=== PATIENT | male | born 1950 | race African-American/Black ===

== ENCOUNTER 2017-07-29 03:21 | Emergency (ER) | payer MEDICARE ==
[2017-07-29] MEDS ORDERED: Aspirin 325 MG TAB ONE (03:55)
[2017-07-29 03:57] LABS: INR-International Normal Ratio 1.1; PTT 27.6 SEC (22.9-36.1); Prothrombin Time 14.1 SEC (12.0-14.7)
[2017-07-29 04:10] LABS: ALT (SGPT) 10 U/L (8-55); AST (SGOT) 11 U/L (5-34); Albumin 3.9 g/dL (3.4-4.8); Alkaline Phosphatase 86 U/L (40-150); Anion Gap 13 mmol/L (10-20); BUN (Urea Nitrogen) 15 mg/dL (8.4-25.7); Bilirubin, Total 0.5 mg/dL (0.2-1.2); CK (CPK) 145 U/L (30-200); Calc. Creatinine Clearance 0 mL/min (70-130); Calcium 8.7 mg/dL (7.8-10.44); Carbon Dioxide 28 mmol/L (23-31); Chloride 105 mmol/L (98-107); Estimated GFR-MDRD 74; Globulin 2.9 g/dL (2.4-3.5); Glucose 103 mg/dL (80-115); Magnesium 2.3 mg/dL (1.6-2.6); Potassium 3.9 mmol/L (3.5-5.1); Protein, Total 6.8 g/dL (5.8-8.1); Sodium 142 mmol/L (136-145)
[2017-07-29 04:11] LABS: CKMB 2.5 ng/mL (0-6.6); Troponin I 0.036 ng/mL (< 0.028)
[2017-07-29 04:13] LABS: #Basophils 0.1 thou/uL (0.0-0.2); #Eosinphils 0.2 thou/uL (0.0-0.7); #Monocytes 0.6 thou/uL (0.11-0.59); #Neutrophils 4.2 thou/uL (1.40-6.50); %Basophils 1.5 % (0.0-1.0); %Eosinophils 2.7 % (0.0-10.0); %Lymphocytes 27.2 % (21.0-51.0); %Monocytes 8.3 % (0.0-10.0); %Neutrophils 60.3 % (42.0-75.0); Hemoglobin 15.3 g/dL (14.0-18.0); MDiff Complete? YES; Manual Diff?? YES; Mean Corpuscular HGB CONC 32.9 g/dL (32.0-36.0); Mean Corpuscular Hemoglobin 32.1 pg (27.0-31.0); Mean Corpuscular Volume 97.6 fL (80.0-94.0); Mean Platelet Volume 10.6 fL (7.4-10.4); Platelet Count 166 thou/uL (130-400); RBC Distribution Width 12.4 % (11.5-14.5); Red Blood Cell (RBC) Count 4.77 mill/uL (4.70-6.10); White Blood Cell (WBC) Count 6.9 thou/uL (4.8-10.8)
[2017-07-29 04:14] LABS: Eosinophils 1 % (0-10); Giant Platelets SLIGHT; Lymphocytes 35 % (21-51); Monocytes 4 % (0-10); Neutrophil 57 % (42-75); PLT Morphology Comment Appears Adequate; Reactive Lymphocytes 3 % (0-10)
[2017-07-29 04:15] LABS: RBC Morphology Normal
[2017-07-29 04:30] LABS: Bilirubin Negative (Negative); Blood, Urine Negative (Negative); Clarity Clear (Clear); Glucose, Urine (Dipstick) Negative (Negative); Leukocyte Negative (Negative); Nitrite Negative (Negative); Protein, Urine (Dipstick) Negative (Neg-Trace); pH, Urine 7.5 (5.0-9.0)
[2017-07-29 04:33] LABS: Bacteria/HPF None Seen HPF (None Seen); RBC/HPF 0-3 HPF (0-3); Squamous Epithelial 0-3 HPF (0-3); WBC/HPF 0-3 HPF (0-3)
[2017-07-29 05:37] LABS: Amphetamine Detected (NotDetected); Barbiturates Screen Not Detected (NotDetected); Benzodiazepine Screen Not Detected (NotDetected); Cocaine Metabolite Screen Not Detected (NotDetected); Medtox Control Line Valid? VALID (VALID); Methadone Not Detected (NotDetected); Methamphetamine Detected (NotDetected); Opiate Screen Not Detected (NotDetected); Oxycodone Screen Not Detected (NotDetected); Phencyclidine (PCP) Not Detected (NotDetected); THC/Cannabinoid Screen Not Detected (NotDetected); Tricyclic Screen Not Detected (NotDetected)
[2017-07-29 05:42] LABS: Acetaminophen Less than 6.0 mcg/mL (10.0-30.0); Alcohol Less than 10 mg/dL (Less than 10); Salicylate Less than 8.0 mg/dL (15.0-30.0)
--- NOTE | 2017-07-29 07:52 | RAD ---
PORTABLE CHEST ONE VIEW: Date: 07-29-17 Time: 3:25 a.m. History: Chest pain. FINDINGS: The heart size is normal. The lungs are expanded without focal areas of consolidation, pneumothorax, or pleural effusions. Old healed right sided rib fracture. IMPRESSION: No radiographic evidence of acute cardiopulmonary process. POS: [facility]
[2017-07-29] MEDS ORDERED: Nitroglycerin 0.4 MG TAB (25 Tab Bottle) ONE (14:06)
== END 2017-07-29 06:10 | disposition short-term general hospital (02) ==
LOC: MADERS 03:21
DX: I20.0 Unstable angina (principal); I10 Essential (primary) hypertension; E11.8 Type 2 diabetes mellitus with unspecified complications; F17.200 Nicotine dependence, unspecified, uncomplicated
CPT/HCPCS: 71045; 80053; 80306; 80307; 81001; 82553; 83735; 83880; 84484; 85025; 85610; 85730; 87086; 93005; 94760

== ENCOUNTER 2017-07-31 22:10 | Emergency (ER) | payer MEDICARE ==
[~2017-07-31 22:10] MED LIST: Donnatal Elixir 16.2 MG/5 ML UDCUP ONE
--- NOTE | 2017-07-31 22:47 | RAD ---
CHEST ONE VIEW 07/31/17 HISTORY: Fluttering of heart. COMPARISON: Chest one view 07/29/17. Lungs are clear. No pneumothorax or effusion. Cardiac silhouette and mediastinal contours are within normal limits. IMPRESSION: No acute intrathoracic abnormality. POS: [facility]
[2017-07-31 22:54] LABS: PTT 28.1 SEC (22.9-36.1); Prothrombin Time 13.6 SEC (12.0-14.7)
[2017-07-31 23:05] LABS: ALT (SGPT) 9 U/L (8-55); AST (SGOT) 10 U/L (5-34); Albumin 3.9 g/dL (3.4-4.8); Alkaline Phosphatase 87 U/L (40-150); Anion Gap 16 mmol/L (10-20); BUN (Urea Nitrogen) 15 mg/dL (8.4-25.7); Bilirubin, Total 0.4 mg/dL (0.2-1.2); CK (CPK) 88 U/L (30-200); Calc. Creatinine Clearance 0 mL/min (70-130); Calcium 9.2 mg/dL (7.8-10.44); Carbon Dioxide 25 mmol/L (23-31); Chloride 105 mmol/L (98-107); Estimated GFR-MDRD 84; Glucose 100 mg/dL (80-115); Potassium 3.6 mmol/L (3.5-5.1); Protein, Total 6.9 g/dL (5.8-8.1); Sodium 142 mmol/L (136-145)
[2017-07-31 23:11] LABS: CKMB 1.8 ng/mL (0-6.6); Hemoglobin 15.8 g/dL (14.0-18.0); MDiff Complete? YES; Mean Corpuscular HGB CONC 32.8 g/dL (32.0-36.0); Mean Corpuscular Hemoglobin 31.5 pg (27.0-31.0); Mean Platelet Volume 12.6 fL (7.4-10.4); Platelet Count 211 thou/uL (130-400); RBC Distribution Width 12.3 % (11.5-14.5); Troponin I 0.018 ng/mL (< 0.028); White Blood Cell (WBC) Count 8.1 thou/uL (4.8-10.8)
[2017-07-31 23:12] LABS: Anisocytosis SLIGHT = 6-15 cells (100X) (0-5/hpf); Band 1 % (5-11); Delete Auto Diff?? YES; Lymphocytes 24 % (21-51); Macrocytosis SLIGHT = 6-15 cells (100X) (0-5/hpf); Monocytes 5 % (0-10); Neutrophil 70 % (42-75)
[2017-07-31 23:13] LABS: PLT Morphology Comment Appears Adequate
[2017-08-01] MEDS ORDERED: Lidocaine Viscous Sol 2% 15 ml UD Cup ONE (00:17)
[2017-08-01] MEDS ORDERED: Donnatal Elixir 16.2 MG/5 ML UDCUP ONE (00:17)
[2017-08-01] MEDS ORDERED: Mag-Al Plus 1200 MG/1200 MG/120 MG/30 ML UDCUP ONE (00:17)
== END 2017-08-01 00:55 | disposition home or self-care (01) ==
LOC: MADERS 22:10
DX: K30 Functional dyspepsia (principal); E11.9 Type 2 diabetes mellitus without complications; I10 Essential (primary) hypertension; F17.210 Nicotine dependence, cigarettes, uncomplicated
CPT/HCPCS: 36415; 71045; 80053; 82550; 82553; 83880; 84484; 85025; 85610; 85730; 93005; 94760